=== PATIENT | female | born 1950 | race Caucasian/White ===

== ENCOUNTER 2018-09-06 10:42 | Emergency (ER) | payer MEDICARE, OTHER ==
[2018-09-06 11:13] VITALS: BP 116/67
--- NOTE | 2018-09-06 12:32 | UC ---
Abdominal Pain Female HPI - HPI Summary HPI Summary: 68-year-old woman comes in with a chief complaint of abdominal pain. She woke up 4 days ago with the pain. Pain is lower abdomen then radiating up to both of her flanks and all the way around her entire abdomen. She is decreased appetite. She had some chills. She normally has a bowel movement every day but she's only had a small one in the last 4 days. She did notice some blood in her urine. No burning with urination. She's had her gallbladder out in the past but she still has her appendix and denies having any other surgeries. No known history of diverticulosis. At its worst the pain was a 10 out of 10. Palpates warn the lower abdomen and it said 2 out of 10. Pushing on it ambulation makes the pain worse. Resting makes the pain better. - History of Current Complaint Chief Complaint: UCAbdominalPain Stated Complaint: STOMACH PAIN Time Seen by Provider: 09/06/18 12:17 Pain Intensity: 2 Allergies/Adverse Reactions: Allergies Allergy/AdvReac Type Severity Reaction Status Date / Time No Known Allergies Allergy Verified 09/06/18 11:02 Home Medications: Home Medications Cholecalciferol TAB* [Vitamin D TAB*] 1,000 unit PO DAILY 09/06/18 [History Confirmed 09/06/18] Fenofibrate 40 mg PO 09/06/18 [History] Hydroxychloroquine TAB* [Plaquenil TAB*] 200 mg PO DAILY 09/06/18 [History Confirmed 09/06/18] PMH/Surg Hx/FS Hx/Imm Hx Previously Healthy: Yes - Surgical History Surgical History: Yes Surgery Procedure, Year, and Place: [facility] 1971 - Social History Alcohol Use: Weekly Substance Use Type: None Smoking Status (MU): Heavy Every Day Tobacco Smoker Type: Cigarettes Amount Used/How Often: 1/2 PPD Household Exposure Type: Cigarettes Review of Systems All Other Systems Reviewed And Are Negative: Yes Constitutional: Positive: Chills Skin: Positive: Negative Eyes: Positive: Negative ENT: Positive: Negative Respiratory: Positive: Negative Cardiovascular: Positive: Negative Gastrointestinal: Positive: Abdominal Pain, Nausea Genitourinary: Positive: Hematuria. Negative: Dysuria Motor: Positive: Negative Neurovascular: Positive: Negative Musculoskeletal: Positive: Negative Neurological: Positive: Negative Psychological: Positive: Negative Is Patient Immunocompromised?: Yes - ON [place] Physical Exam Triage Information Reviewed: Yes Appearance: Well-Appearing, No Pain Distress, Well-Nourished Vital Signs: Initial Vital Signs Temp 98.2 F 09/06/18 11:05 Pulse 72 09/06/18 11:05 Resp 16 09/06/18 11:05 BP 116/67 09/06/18 11:05 Pulse Ox 98 09/06/18 11:05 Vital Signs Reviewed: Yes Eye Exam: Normal Eyes: Positive: Conjunctiva Clear Neck: Positive: Supple Respiratory: Positive: Lungs clear, Normal breath sounds, No respiratory distress Cardiovascular: Positive: RRR Abdomen Description: Positive: Other: - RLQ AND LLQ TENDERNESS TO PALPATION. POSITIVE HEEL STRIKE AND OBTURATOR SIGN.. Negative: CVA Tenderness (R), CVA Tenderness (L) Neurological Exam: Normal Neurological: Positive: Alert, Muscle Tone Normal Psychological Exam: Normal Psychological: Positive: Age Appropriate Behavior Skin Exam: Normal Abd Pain Female Course/Dx - Course Course Of Treatment: Due to the patient's abdominal pain I recommended the patient go to the emergency department for further evaluation. I discussed with her the possibilities of appendicitis diverticulitis urinary tract obstruction and the need to have that determined today. She plans to go by POV. I discussed with Selin in the [place] emergency department. - Differential Dx/Diagnosis Provider Diagnosis: Abdominal pain Discharge - Sign-Out/Discharge Documenting (check all that apply): Patient Departure All imaging exams completed and their final reports reviewed: No Studies - Discharge Plan Condition: Stable Disposition: HOME-RECOMMEND TO ED Referrals: Libra Mariee MD [Primary Care Provider] - Additional Instructions: GO DIRECTLY TO THE EMERGENCY DEPARTMENT FOR FURTHER EVALUATION OF YOUR ABDOMINAL PAIN. - Billing Disposition and Condition Condition: STABLE Disposition: Home-Recommend to ED
== END 2018-09-06 12:39 | disposition home health service (06) ==
LOC: UCCORT 10:42
DX: R10.9 Unspecified abdominal pain (principal); F17.210 Nicotine dependence, cigarettes, uncomplicated
CPT/HCPCS: 81003; 99212; G0463